=== PATIENT | female | born 1995 | race Caucasian/White ===

== ENCOUNTER 2017-06-29 12:38 | Inpatient (IN) ==
[2017-06-29] MEDS ORDERED: Ondansetron 4 MG/2 ML VIAL IVP PRN ×2 (13:03→16:57)
[2017-06-29] MEDS ORDERED: Naloxone 0.4 MG/ML INJ IVP PRN ×2 (13:03→16:57)
[2017-06-29] MEDS ORDERED: Famotidine 20 MG/2 ML VIAL IVP PRN (13:03)
[2017-06-29] MEDS ORDERED: *HR* Nalbuphine 20 MG/ML AMPUL IVP PRN (13:03)
--- NOTE | 2017-06-29 13:34 | OB/GYN History & Physical ---
Date of Encounter: 06/29/17 Time of Encounter: 13:30 Assessment and Plan (1) 38 weeks gestation of Current visit: Yes Status: Acute Admit to L&D Intermittent monitoring until labor augmentation needed (2) Spontaneous rupture of amniotic membranes Current visit: Yes Status: Acute Monitor temperature per protocol. Augment labor as needed. History of Present Illness Chief complaint: Rupture of membranes HPI: Ms. Hutton is a 22 year old female at 38w2d who arrives today with complaint of possible SROM at 1104 today. Patient states she has had continuous leakage of clear fluid since that time. Patient states that the fetus is active and she is having no vaginal bleeding. Patient has had an unremarkable course. Blood Type O+ GBS Negative Rubella - Immune Varicella - Immune HBSAG negative T. Pall. negative Past Med Surg Social Fam HX - Past Medical History Source: patient Medical history: no medical history Psychiatric history: no psych history - Past Surgical History Surgical History: other (Tonsillectomy) - Social History Smoking Status: Never smoker Smokeless Tobacco Status: No Alcohol use: none Drug use: none Occupational status: employed Current living situation: Home - Independent Activity Level: Independent ambulation Recent Out of Country Travel Within the Last 8 Weeks: No Exposure or Possible Exposure to Illness During Travel: No Obstetrical History - Pregnancies : 1 Para: 0 Term: 0 : 0 Ab's: 0 Livin Medications and Allergies Ciprofloxacin HCl [Cipro] 500 mg PO BID #20 tablet 06/15/15 [Rx] Norethindrone-E.estradiol-Iron [Lo Loestrin Fe 1-10 Tablet] 06/15/15 [History] Metoclopramide [Reglan] 5 mg PO Q6HR PRN #10 tablet 11/15/16 [Rx] 3 Allergy/AdvReac Type Severity Reaction Status Date / Time No Known Allergies Allergy Verified 11/15/16 19:53 Review of System OB - Constitutional Constitutional ROS IM: as per HPI - Nose, mouth, and throat Nose, mouth and throat: as per HPI - Breasts Breasts: as per HPI - Cardiovascular Cardiovascular: as per HPI - Respiratory Respiratory: as per HPI - Gastrointestinal Gastrointestinal: as per HPI - Genitourinary Genitourinary: as per HPI - Menstruation Menstruation: as per HPI - Muscloskeletal Musculoskeletal: as per HPI - Integumentary Integumentary: as per HPI - Neurological Nerological: as per HPI - Psychiatric Psychiatric: as per HPI - Endocrine Endocrine: as per HPI - Hematologic/Lymphatic Hematologic/Lymphatic: as per HPI - Allergic/Immunologic Allergic/Immunologic: as per HPI Exam - Constitutional Constitutional: well developed, well nourished, no acute distress - Neck Neck exam: full ROM - Lungs Respiratory exam: CTAB - Cardiovascular Cardiovascular exam: RRR, +S1, +S2 - Breasts Breast: bilateral: normal - Abdomen Abdomen: Present: bowel sounds normal, gravid, non tender - Extremities Extremities exam: full ROM, normal capillary refill, normal inspection Deep Tendon Reflex Grade: 2+ Normal - Vulva Vulva: bilateral: normal - Vagina Vagina: Present: normal moisture - Uterus Uterus exam: Present: normal size - Comments Comments: Sterile speculum exam completed. + pooling noted, + nitrazine and Ferning. FHR 120 bpm, moderate variability, + 15x15 accels, no decels. Results All other labs normal. - VTE Reasons for not Prescribing Prophylaxis: Treatment not Indicated - Low risk for VTE
[2017-06-29 13:39] LABS: Basophils % 0.3 %; Eosinophils % 0.2 %; Hematocrit 35.4 % (35.3-44.9); Hemoglobin 12.4 g/dL (11.5-15.4); Immature Granulocytes % 0.6 % (0-4); Lymphocytes # 2.5 K/mcL (0.6-4.6); Lymphocytes % 15.9 %; Mean Corpuscular Hemoglobin 30.6 pg (28.0-33.3); Mean Corpuscular Volume 87.4 fL (83.0-100.0); Mean Platelet Volume 10.8 fL (9.4-12.4); Monocytes # 1.1 K/mcL (0.0-1.3); Monocytes % 7.2 %; Neutrophils # 11.8 K/mcL (1.6-8.9); Platelet Count 284 K/mcL (140-400); Red Blood Count 4.05 M/mcL (3.82-4.97); Red Cell Distribution Width 12.5 % (11.5-14.5); Segmented Neutrophils % 75.8 %
[2017-06-29 14:04] LABS: Amphetamine Screen,Urine Negative ng/mL (Cutoff=1000); Barbiturate Screen,Urine Negative ng/mL (Cutoff=200); Benzodiazepines Screen,Urine Negative ng/mL (Cutoff=200); Cannabinoid Screen,Urine Negative ng/mL (Cutoff = 50); Cocaine Screen,Urine Negative ng/mL (Cutoff= 300); Opiate Screen,Urine Negative ng/mL (Cutoff=300); Phencyclidine Screen,Urine Negative ng/mL (Cutoff=25)
--- NOTE | 2017-06-29 15:27 | Anesthesia Evaluation PreOp ---
Date of Encounter: 06/29/17 Time of Encounter: 15:24 - Past History Planned Operation: MATTHIEU Cardiac History: Denies any Significant Hx Pulmonary History: Denies Any Significant HX BAKER SECOND History: Denies Any Significant HX Other Medical History: Denies Any Significant HX, Other (Anxiety,depression) Anesthesia History: No Prior Anesthetic Complications (T&A), Past Anesthesia : Yes Alcohol Use: none Drug use: none Medications and Allergies FLUoxetine HCl [PROzac] 20 mg PO DAILY 06/29/17 [History] Pnv95/Ferrous Fumarate/FA [ Vitamin Tablet] 1 each PO 06/29/17 [History] 3 Allergy/AdvReac Type Severity Reaction Status Date / Time No Known Allergies Allergy Verified 06/29/17 14:00 - Meds/Allergy Pre-op Review Medications Reviewed: Yes Allergies Reviewed: Yes Beta Blockers on Current Med List: No Anesthesia Results - Labs 06/29/17 13:13 Anesthesia Exam Vital Signs Temperature 98.3 F 06/29/17 13:19 Pulse Rate 86 06/29/17 13:19 Respiratory Rate 18 06/29/17 13:19 Blood Pressure 123/87 06/29/17 13:19 Temperature 98.3 F 06/29/17 13:19 Pulse Rate 86 06/29/17 13:19 Respiratory Rate 18 06/29/17 13:19 Blood Pressure 123/87 06/29/17 13:19 Height: 5'1" Weight: 88.1kg NPO (# of Hours): 2 Pain Scale: 3 Pain Scale Used: Numeric (1 - 10) - HEENT Pupil (Motor): Pupils equal Mallampati: II Teeth: Normal Oral Opening: Greater than 3 - BAKER SECOND LOC: Oriented BAKER SECOND Motor: Normal RUE, Normal LUE, Normal RLE, Normal LLE, Normal Face BAKER SECOND Sensory: Normal: RUE, LUE, RLE, LLE, Face - Cardiac Rhythm: Regular Murmur: None JVD: No Carotid Bruit: No - Pulmonary Breath Sounds: bilateral Clear Respiratory Effort: Symmetrical Anesthesia Assess/Plan ASA Score: 2 Modified Amaury Scale for Level of Consciousness: Cooperative, oriented, and tranquil Anesthetic Plan: Regional Autologous Blood: Yes Monitoring Plan: Standard Monitors Recovery Plan: Other
[2017-06-29] MEDS ORDERED: Ringers Solution, Lactated 2,000 ML ONE (15:32)
--- NOTE | 2017-06-29 15:45 | OB Labor Progress Note ---
Date of Encounter: 06/29/17 Time of Encounter: 15:43 Labor Progress Note - Subjective Subjective: Pt reports increasing pain with contractions. She is sitting comfortably in bed and suddenly reports feeling dizzy and states her hearing is fading. - Vital Signs Vital Signs: BP 112/59 during dizzy spell from baseline 130's - Cervix Cervix: 3-4/90/-1 - Heart Tones Heart Tones: Category II, decel noted following pt report of feeling dizzy. - Saint [place] Saint [place]: 3-4 minutes per pt report. - Interventions Interventions: Pt repositioned to left lateral. IV fluid bolus started. - Plan Plan: COntinue to monitor. Pt to remain on continuous monitoring for now.
[2017-06-29] MEDS ORDERED: EPHEDrine 50 MG/ML VIAL IVP PRN (16:57)
[2017-06-29] MEDS ORDERED: *HR* FentaNYL (PF) 100 MCG/2 ML VIAL EP ONE (16:57)
[2017-06-29] MEDS ORDERED: Bupivacaine-MPF 0.25% 10 ML VIAL EP ONE (16:57)
[2017-06-29] MEDS ORDERED: Epidural Premix (fent/bupiv) 110 ML EP SCH (17:00)
[2017-06-29] MEDS ORDERED: Bupivacaine-MPF 0.25% 10 ML VIAL ONE (17:01)
[2017-06-29] MEDS ORDERED: Epidural Premix (fent/bupiv) 110 ML EP ONE (17:03)
--- NOTE | 2017-06-29 17:53 | Anesthesia Procedures ---
Date of Encounter: 06/29/17 Time of Encounter: 17:13 Procedures: Anesthesia - Epidural/Spinal Patient ID/Chart reviewed: Yes Patient examined: Yes OB Eval: Gestational age: 38 OB Eval: : 1 OB Eval: Hx Para: 0 OB Eval: Dilated at (cm): 5 OB Eval: Contractions: Non-stressed pattern Consent Obtained: Yes Supplemental Oxygen: None/Room Air Site Prep: Aseptic Technique, Sterile prep and drape, Povidone-Iodine 1% Patient position: upright Local Anesthetic: Lidocaine 1% Amount of Local Anesthetic used: 3 Touhy Needle Gauge: 18 Touhy Needle Depth (cm): 6 Catheter Depth at Skin (cm): 15 Test Dose (1.5% Lido + Epi): Volume given (mls): 3 Test Dose Result: Negative Loading Dose: 0.25% Marcaine (mls): 10 Loading Dose: Fentanyl (mcg): 100 Loading Dose Administered: Thru Catheter Infusion Med: 0.125% Bupivacaine w/ 2 mcg/ml Fentanyl Infusion Rate (mls/hr): [address]: Tegaderm, Tape Interspace Used: L4-L5 Loss of Resistance (DRE): Yes Blood: No CSF: No Paresthesia: No Procedure: MATTHIEU placed 1st pass in upright position without any immediate noted complications. VSS. Small decrease in BP following bolus. Ephedrine 5mg administered with return of BP to baseline. Vitals + FHT's: 1713 BP 132/78 P 94 R 18 BP 124/62 P 72 R 16
[2017-06-29] MEDS ORDERED: Oxytocin 20 units/ LR 1000 mL 20 UNIT/1,000 ML BAG IVC ONE ×3 (18:24→23:32)
[2017-06-29] MEDS ORDERED: Ringers Solution, Lactated 1,000 ML ONE (18:43)
--- NOTE | 2017-06-29 20:48 | OB/GYN Procedure Note ---
Delivery - Delivery Date: 06/29/17 Provider: Daria Gustafson (Corie FRIAS delivered) Intrapartum events: none Delivery induction: none Delivery monitor: external FHT, external uterine Anesthesia: epidural Estimated Blood Loss: 200 - (s) Infant A Delivery Date: 06/29/17 Presentation: vertex Position: CHEN Route of delivery: Gender: Male Viability: Viable Pounds: 6 Ounces: 6 at 1 minute: 9 at 5 mins: 9 Shoulder Dystocia: not encountered Specimens collected: cord blood Placenta: spontaneous Cord: nuchal cord (x2), 3 umbilical vessels, delivered through nuchal - Repair Episiotomy: none Laceration Description: Perineal - 2nd Degree - Complications Delivery comments: Called to room with patient complete and +2 station. Under maternal effort she delivered a viable male weighing 6 lbs. 6 oz. and Apgars 9 and 9 at one and 5 minutes respectively over a second-degree perineal laceration. Following delivery of the baby the double nuchal cord was reduced. No shoulder dystocia was encountered. Infant was placed on mom's abdomen. Cord was allowed to cease pulsations and then was double clamped and cut. Cord blood was collected. Placenta delivered spontaneously, complete, and intact with a three-vessel cord. Second-degree perineal laceration was repaired in standard fashion with 3- 0 Vicryl. Following delivery she immediately developed a left labial hematoma that was stable throughout the repair. Ice pack applied. Mother and infant are recovering in the LDR in stable condition.. - Disposition Mom disposition: stable in LDR [place] disposition: stable in LDR
[2017-06-29] MEDS ORDERED: Oxytocin 20 units/ LR 1000 mL 20 UNIT/1,000 ML BAG IVC SCH (23:32)
[2017-06-29] MEDS ORDERED: Acetaminophen 325 MG TABLET PO PRN (23:32)
[2017-06-29] MEDS ORDERED: Benzocaine/Menthol 56 GM AEROSOL SPRAY TP PRN (23:39)
[2017-06-30] MEDS: Ibuprofen 600 MG TABLET PO PRN ×4 (00:41→22:10)
[2017-06-30] MEDS: *HR* HYDROcodone/Acet 5/325 mg TABLET PO PRN ×3 (04:15→16:08)
[2017-06-30 04:46] LABS: Basophils % 0.2 %; Eosinophils % 0.1 %; Hematocrit 30.9 % (35.3-44.9); Immature Granulocytes % 0.9 % (0-4); Lymphocytes # 2.2 K/mcL (0.6-4.6); Lymphocytes % 13.1 %; Mean Corpuscular HGB Conc 34.3 g/dL (31.6-35.5); Mean Corpuscular Hemoglobin 30.2 pg (28.0-33.3); Mean Platelet Volume 10.5 fL (9.4-12.4); Monocytes # 1.5 K/mcL (0.0-1.3); Monocytes % 8.7 %; Neutrophils # 12.9 K/mcL (1.6-8.9); Platelet Count 214 K/mcL (140-400); Red Blood Count 3.51 M/mcL (3.82-4.97); Red Cell Distribution Width 12.6 % (11.5-14.5)
[2017-06-30 04:49] LABS: Hemoglobin 10.6 g/dL (11.5-15.4)
[2017-06-30] MEDS: FLUoxetine 20 MG CAPSULE PO SCH (10:14)
[2017-06-30] MEDS: Prenatal Vit/FA 1 EACH TABLET PO SCH (10:14)
[2017-06-30] MEDS ORDERED: Ondansetron ODT 4 MG TAB.RAPDIS SL PRN (10:29)
--- NOTE | 2017-06-30 10:34 | OB/GYN Progress Note ---
Date of Encounter: 06/30/17 Time of Encounter: 10:30 - Assessment and Plan (1) Vaginal delivery Current Visit: Yes Status: Acute S/P vaginal delivery day 1 Lochia is light and without clots VSS Pain is controlled by ordered oral medications is going well Labial hematoma is decreased in size by patient report and feels better Tolerating regular diet without difficulty; voiding and passing flatus without difficulty Anticipate discharge home tomorrow. (2) Hematoma of perineum in female Current Visit: Yes Status: Acute Qualifiers: Encounter type: initial encounter Qualified Code(s): S30.23XA - Contusion of vagina and vulva, initial encounter (3) Breast feeding status of mother Current Visit: Yes Status: Acute Subjective - Subjective Principal diagnosis: Vaginal Delivery Patient reports: appetite normal, voiding normally, pain well controlled, ambulating normally, nauseated Williams: doing well, nursing well Objective - Latest Vital Signs Latest vital signs: Vital Signs Temp Pulse Resp BP Pulse Ox 06/30/17 09:05 97.6 F 89 18 132/83 98 06/30/17 03:58 98.0 F 68 16 130/84 98 06/30/17 01:40 97.9 F 78 16 137/90 94 06/30/17 00:20 98.2 F 80 16 133/83 99 06/29/17 23:20 98.5 F 81 16 130/82 98 06/29/17 13:19 98.3 F 86 18 123/87 Intake and Output 06/29/17 06/30/17 06/30/17 23:59 07:59 15:59 Intake Total 0 / 0 Output Total 1750 / 1750 Balance -1750 / -1750 Intake: Oral 0 / 0 Output: Urine 1750 / 1750 Other: Weight 85.9 kg Patient Weight 06/30/17 23:59 Weight 85.9 kg - Exam Lungs: bilateral: normal Chest: Normal S1, Normal S2 Extremities: Present: normal Abdomen: Present: normal appearance, soft. Absent: gravid, tenderness Uterus: Present: normal, firm Uterus Position: 1 Finger Below Umbilicus, Midline - Labs Labs: Laboratory Results - last 24 hr 06/29/17 06/29/17 06/30/17 13:13 13:13 04:15 WBC 15.6 H 16.8 H RBC 4.05 3.51 L Hgb 12.4 10.6 L D Hct 35.4 30.9 L MCV 87.4 88.0 MCH 30.6 30.2 MCHC 35.0 34.3 RDW 12.5 12.6 Plt Count 284 214 MPV 10.8 10.5 Immature Gran % 0.6 0.9 Seg Neutrophils % 75.8 77.0 Lymphocytes % 15.9 13.1 Monocytes % 7.2 8.7 Eosinophils % 0.2 0.1 Basophils % 0.3 0.2 Neutrophils # 11.8 H 12.9 H Lymphocytes # 2.5 2.2 Monocytes # 1.1 1.5 H Eosinophils # 0.0 0.0 Basophils # 0.0 0.0 Urine Opiates Screen Negative Ur Barbiturates Screen Negative Ur Phencyclidine Scrn Negative Ur Amphetamines Screen Negative U Benzodiazepines Scrn Negative Urine Cocaine Screen Negative U Marijuana (THC) Screen Negative
[2017-07-01] MEDS: Ibuprofen 600 MG TABLET PO PRN (06:47)
[2017-07-01 08:42] VITALS: BP 127/75
--- NOTE | 2017-07-01 09:11 | Discharge Summary ---
Date of Encounter: 07/01/17 Time of Encounter: 09:07 - Discharge Diagnosis (1) Breast feeding status of mother Priority: Secondary Status: Acute Comments: support prn (2) Hematoma of perineum in female Priority: Secondary Status: Acute Comments: Ice pack to perineum sitz bath prn [place] prn pain Qualifiers: Encounter type: initial encounter Qualified Code(s): S30.23XA - Contusion of vagina and vulva, initial encounter (3) Vaginal delivery Priority: Primary Status: Acute Comments: Continue routine care discharge home today - Discharge Medications Prescriptions: HYDROcodone/Acet 5/325 mg [[place] 5-325 mg] 1 tab PO Q4HR PRN #10 tablet PRN Reason: Severe Pain Ibuprofen [Motrin] 600 mg PO Q6HR PRN #60 tablet PRN Reason: Cramping Breast Pump [BREAST PUMP] 1 each .ROUTE AD #1 each Docusate [Colace] 100 mg PO BID #60 capsule Home Medications: FLUoxetine HCl [Prozac] 20 mg PO DAILY 06/29/17 [History] Pnv95/Ferrous Fumarate/FA [ Vitamin Tablet] 1 each PO 06/29/17 [History] Benzocaine/Menthol [place] [Dermoplast [place]] 1 appl TP QID PRN aerosol 07/01/17 [Rx] Breast Pump [BREAST PUMP] 1 each .ROUTE AD #1 each 07/01/17 [Rx] Docusate [Colace] 100 mg PO BID #60 capsule 07/01/17 [Rx] HYDROcodone/Acet 5/325 mg [[place] 5-325 mg] 1 tab PO Q4HR PRN #10 tablet [Rx] Ibuprofen [Motrin] 600 mg PO Q6HR PRN #60 tablet 07/01/17 [Rx] Allergies/Adverse Reactions: 3 Allergy/AdvReac Type Severity Reaction Status Date / Time No Known Allergies Allergy Verified 06/29/17 14:00 Data Procedures and tests throughout hospitalization: Laboratory Tests 06/29/17 06/29/17 06/30/17 13:13 13:13 04:15 WBC 15.6 H 16.8 H RBC 4.05 3.51 L Hgb 12.4 10.6 L D Hct 35.4 30.9 L MCV 87.4 88.0 MCH 30.6 30.2 MCHC 35.0 34.3 RDW 12.5 12.6 Plt Count 284 214 MPV 10.8 10.5 Immature Gran % 0.6 0.9 Seg Neutrophils % 75.8 77.0 Lymphocytes % 15.9 13.1 Monocytes % 7.2 8.7 Eosinophils % 0.2 0.1 Basophils % 0.3 0.2 Neutrophils # 11.8 H 12.9 H Lymphocytes # 2.5 2.2 Monocytes # 1.1 1.5 H Eosinophils # 0.0 0.0 Basophils # 0.0 0.0 Urine Opiates Screen Negative Ur Barbiturates Screen Negative Ur Phencyclidine Scrn Negative Ur Amphetamines Screen Negative U Benzodiazepines Scrn Negative Urine Cocaine Screen Negative U Marijuana (THC) Screen Negative Date of admission: 06/29/17 12:38 Primary care physician: Jacquie Adkins MD Consults: 06/29/17 23:32 Consult to Environmental Protection Economist [CONS] Routine Comment: Vaginal delivery, consult needed Discharging clinician: Padmini Bill Anticipated date of discharge: 07/01/17 - Patient Status Disposition: Home, Self-Care Condition: Good Functional capacity at discharge: independent ambulation - Discharge Instructions Follow Up With: Jacquie Adkins MD [Primary Care Provider] - Cortez Paez DO [Partnered Physician] - - Diet and Activity Activity: increase activity as tolerated Diet: regular diet Hospital Course Procedures: [facility] report reviewed by ALTAGRACIA Miles Reason for admission: active labor Delivery: Episiotomy: none Laceration: none Other procedures: none complications: hematoma (perineal ) Discharge diagnosis: IUP at term delivered [place] baby: female (breast feeding) Time Attestation: Total time spent providing and/or coordinating discharge services: Time Spent: Less than 30 minutes Exam - Constitutional Vitals: Temp Pulse Resp BP Pulse Ox 98.0 F 92 16 127/75 99 07/01/17 07:40 07/01/17 07:40 07/01/17 07:40 07/01/17 07:40 06/30/17 19:40 General appearance IM: A&O X 3, pleasant, answers questions appropriately - Respiratory Respiratory exam: Present: CTAB - Cardiovascular Cardiovascular exam IM: Present: RRR, +S1, +S2 - Uterine Tone: Firm Uterus Position: 1 Finger Below Umbilicus, Midline - Extremities Exam Extremities exam IM: Present: full ROM, normal capillary refill, normal inspection - Neurological Exam Neurological exam: alert, oriented X3 - Other Additional findings: Perineal hematoma stable. patient instructed on care
[2017-07-01] MEDS: *HR* HYDROcodone/Acet 5/325 mg TABLET PO PRN (09:56)
[2017-07-01] MEDS: Prenatal Vit/FA 1 EACH TABLET PO SCH (09:56)
[2017-07-01] MEDS: FLUoxetine 20 MG CAPSULE PO SCH (09:56)
== END 2017-07-01 13:30 | disposition home or self-care (01) | DRG 775 ==
LOC: 1NENULAB → OBSVTOIN 12:38 → 1NENUOBS 21:44
PROVIDERS: ADMIT Obstetrics & Gynecology; ATTEND Obstetrics & Gynecology

== ENCOUNTER 2019-10-14 19:41 | Inpatient (IN) ==
[2019-10-14] MEDS ORDERED: Ringers Solution, Lactated 1,000 ML ONE (19:51)
[2019-10-14] MEDS: Ringers Solution, Lactated 1,000 ML IVC SCH ×2 (20:05→20:53)
[2019-10-14] MEDS ORDERED: Naloxone 0.4 MG/ML INJ IVP PRN (20:06)
[2019-10-14] MEDS ORDERED: Ondansetron 4 MG/2 ML VIAL IVP PRN (20:06)
[2019-10-14] MEDS ORDERED: Metoclopramide 10 MG/2 ML VIAL IVP PRN (20:06)
[2019-10-14] MEDS ORDERED: Lidocaine 1% 20 ML MDV INFILT PRN (20:06)
[2019-10-14] MEDS ORDERED: Famotidine 20 MG/2 ML VIAL IVP PRN (20:06)
[2019-10-14] MEDS ORDERED: EPHEDrine 50 MG/ML VIAL IVP PRN (20:15)
[2019-10-14] MEDS ORDERED: Epidural Premix (fent/bupiv) 110 ML EP SCH (20:15)
[2019-10-14] MEDS ORDERED: *HR* FentaNYL (PF) 100 MCG/2 ML VIAL ONE (20:17)
[2019-10-14] MEDS ORDERED: Ropivacaine/PF 0.2% 20 ML VIAL ONE (20:17)
[2019-10-14 20:26] LABS: Basophils # 0.1 K/mcL (0.0-0.2); Basophils % 0.3 %; Eosinophils % 0.1 %; Hemoglobin 12.5 g/dL (11.5-15.4); Immature Granulocytes % 1.7 % (0-4); Lymphocytes % 17.1 %; Mean Corpuscular HGB Conc 33.8 g/dL (31.6-35.5); Mean Corpuscular Hemoglobin 29.6 pg (28.0-33.3); Mean Corpuscular Volume 87.5 fL (83.0-100.0); Mean Platelet Volume 10.9 fL (9.4-12.4); Monocytes # 1.3 K/mcL (0.0-1.3); Monocytes % 7.6 %; Neutrophils # 12.8 K/mcL (1.6-8.9); Platelet Count 291 K/mcL (140-400); Red Blood Count 4.23 M/mcL (3.82-4.97); Red Cell Distribution Width 12.7 % (11.5-14.5); Segmented Neutrophils % 73.2 %; White Blood Count 17.5 K/mcL (4.3-11.1)
[2019-10-14] MEDS ORDERED: Epidural Premix (fent/bupiv) 110 ML EP ONE (20:34)
[2019-10-14 20:37] LABS: Amphetamine Screen,Urine Negative ng/mL (Cutoff=1000); Barbiturate Screen,Urine Negative ng/mL (Cutoff=200); Benzodiazepines Screen,Urine Negative ng/mL (Cutoff=200); Cannabinoid Screen,Urine Negative ng/mL (Cutoff = 50); Cocaine Screen,Urine Negative ng/mL (Cutoff= 300); Opiate Screen,Urine Negative ng/mL (Cutoff=300); Phencyclidine Screen,Urine Negative ng/mL (Cutoff=25)
[2019-10-14] MEDS ORDERED: Oxytocin 20 units/ LR 1000 mL 20 UNIT/1,000 ML BAG IVC ONE ×2 (22:58→23:24)
[2019-10-15] MEDS ORDERED: Measles/Mumps/Rubella Vacc 0.5 ML VIAL SQ PRN (02:00)
[2019-10-15] MEDS ORDERED: Rho Immune Globulin 1,500 UNIT SYRINGE IM PRN (02:00)
[2019-10-15] MEDS ORDERED: Oxytocin 20 units/ LR 1000 mL 20 UNIT/1,000 ML BAG IVC SCH (02:00)
[2019-10-15] MEDS ORDERED: Oxytocin 20 units/ LR 1000 mL 20 UNIT/1,000 ML BAG IVC ONE (02:00)
[2019-10-15] MEDS ORDERED: Acetaminophen 325 MG TABLET PO PRN (02:00)
[2019-10-15] MEDS ORDERED: Ringers Solution, Lactated 1,000 ML ONE (05:25)
[2019-10-15 05:57] LABS: Basophils % 0.2 %; Eosinophils % 0.2 %; Lymphocytes # 2.2 K/mcL (0.6-4.6); Lymphocytes % 12.3 %; Mean Corpuscular HGB Conc 33.3 g/dL (31.6-35.5); Mean Corpuscular Hemoglobin 30.3 pg (28.0-33.3); Mean Corpuscular Volume 90.9 fL (83.0-100.0); Monocytes # 1.5 K/mcL (0.0-1.3); Monocytes % 8.6 %; Platelet Count 208 K/mcL (140-400); Red Blood Count 3.63 M/mcL (3.82-4.97); Red Cell Distribution Width 12.6 % (11.5-14.5); Segmented Neutrophils % 77.7 %
[2019-10-15] MEDS: Ibuprofen 600 MG TABLET PO PRN ×2 (08:16→19:40)
[2019-10-15] MEDS ORDERED: Prenatal Vit/FA 1 EACH TABLET PO SCH (09:00)
[2019-10-15 19:57] VITALS: BP 124/71
== END 2019-10-15 23:55 | disposition home or self-care (01) | DRG 807 ==
LOC: 1NENULAB → 1NENUOBS 10-15 01:26
PROVIDERS: ADMIT Obstetrics & Gynecology; ATTEND Obstetrics & Gynecology